=== PATIENT | female | born 1955 | race Caucasian/White ===

== ENCOUNTER → 2016-10-22 | Outpatient (CLI) | payer BC ==
[2016-10-22 15:02] LABS: CHLORIDE,CL 107 mmol/L (98-110); SODIUM,NA 143 mmol/L (136-146)
--- NOTE | 2016-10-24 14:57 | CR ---
EXAM DATE: 10/22/16 PATIENT'S AGE: 61 Patient: KIRSTIN RILEY Facility: [place], [place] Site . Site : 1955 Study: XRay Shoulder [id number] 10:10:47 PM Ordering Physician: Shaunna Russo Final Report: HISTORY: Pain. Comparison: None. Findings: Mild degenerative changes in the glenohumeral joint space. The acromioclavicular and subacromial joint spaces are preserved. No evidence for acute fracture or dislocation. Dictated by Kortney Hoff MD @ Oct 24 2016 10:43AM (Electronic Signature) Report Signed by Proxy and Original Signed Document filed in the Medical Record. MTDD
== END | disposition home or self-care (01) ==
LOC: MW.CHIM 14:18
PROVIDERS: ATTEND Internal Medicine
DX: M25.511 Pain in right shoulder (principal); E78.00 Pure hypercholesterolemia, unspecified; E11.9 Type 2 diabetes mellitus without complications; E03.9 Hypothyroidism, unspecified; I10 Essential (primary) hypertension; E87.6 Hypokalemia; E66.9 Obesity, unspecified; K21.9 Gastro-esophageal reflux disease without esophagitis
CPT/HCPCS: 36415; 73030-26-LT; 73030-LT; 80053; 80061; 82607; 83036; 83540; 84439; 84443; 85025